=== PATIENT | female | born 1950 | race African-American/Black ===

== ENCOUNTER 2025-04-28 10:40 | Inpatient (IN) | payer OTHER ==
[~2025-04-28] VITALS: Ht 170.2 cm; Wt 112.0 kg
[2025-04-28] VITALS (50 sets, daily range): BP systolic 76–126; BP diastolic 48–79; PULSE 100–133; RESP 9–29; TEMP 33.8–36.5; O2SAT 88–100
[2025-04-28] MEDS ORDERED: DEXTROSE 50% WATER 50ML SYRINGE IV ONE (10:44)
[2025-04-28] MEDS: DEXTROSE 50% WATER 50ML SYRINGE IV ONE ×2 (10:54)
[2025-04-28] MEDS: HEPARIN 5000 UNITS/ML VIAL IV ONE (11:02)
[2025-04-28] MEDS: ASPIRIN 325MG TABLET PO ONE (11:08)
[2025-04-28] MEDS: PROPOFOL 10MG/ML 100ML 100 ML IV SCH (11:11)
[2025-04-28] MEDS ORDERED: HEPARIN 1000 UNITS/ML 10ML ONE (11:22)
[2025-04-28] MEDS ORDERED: EPINEPHRINE 0.1MG/ML (1:10,000) 10ML SYR ONE (11:22)
[2025-04-28] MEDS ORDERED: IODIXANOL 320 MG/ML 150ML BOTTLE IV ONE (11:22)
[2025-04-28] MEDS ORDERED: ATROPINE SULFATE 1MG/10ML SYR ONE (11:23)
[2025-04-28 11:32] LABS: HEMATOCRIT. 36.0 % (36.0-48.0); HEMOGLOBIN. 10.9 g/dL (12.0-16.0); MEAN PLATELET VOLUME 9.1 fl (7.4-10.4); PLATELET 173 x1000/uL (130-400); RED BLOOD CELL COUNT 3.73 mill/uL (4.2-5.4); RED CELL DISTRIBUTION WIDTH 16.2 % (11.6-14.6)
[2025-04-28] MEDS ORDERED: VANCOMYCIN 1G PREMIX 200 ML IV ONE (11:45)
[2025-04-28] MEDS: SODIUM CHLORIDE 0.9% (SEPSIS BOLUS) IV ONE (11:46)
[2025-04-28] MEDS: PIPERACILLIN/TAZO 3.375G/50ML 50 ML IV ONE (11:46)
[2025-04-28 12:05] LABS: CREATININE 2.9 mg/dL (0.6-1.0)
[2025-04-28 12:06] LABS: UREA NITROGEN BLOOD 83 mg/dL (9-23)
[2025-04-28 12:08] LABS: ASPARTATE AMINOTRANSFERASE 1823 IU/L (<34); BILIRUBIN DIRECT 2.6 mg/dL (<=3.0); BILIRUBIN TOTAL 3.6 mg/dL (0.1-1.0); PROTEIN TOTAL 6.1 g/dL (6.0-8.3)
[2025-04-28 12:14] LABS: TROPONIN I HIGH SENSITIVITY 1198 ng/L (3.0-34)
[2025-04-28] MEDS ORDERED: SODIUM BICARBONATE 8.4% 50MEQ/50ML SYR IV ONE ×2 (12:16→12:52)
[2025-04-28] MEDS ORDERED: IPRATROPIUM/ALBUTEROL 0.5-3(2.5)MG/3ML NEB HHN PRN (12:45)
[2025-04-28] MEDS ORDERED: ACETAMINOPHEN 325MG TABLET PO PRN ×2 (12:45)
[2025-04-28] MEDS ORDERED: ONDANSETRON HCL 4MG/2ML INJ IV PRN (12:45)
[2025-04-28] MEDS ORDERED: DOXYCYCLINE HYCLATE 100 MG/VIAL IV SCH (12:45)
[2025-04-28 12:55] LABS: BAND% 16.0 % (1.0-6.0); LYMPHOCYTES % MANUAL 13.0 % (20.0-60.0); MONOCYTES % MANUAL 2.0 % (2.0-8.0); NEUTROPHILS % MANUAL 69.0 % (45.0-75.0); PLATELET ESTIMATE NORMAL
[2025-04-28 13:04] LABS: BG BASE EXCESS -19.6 mmol/L (-2.0-3.0); BG CARBOXYHEMOGLOBIN 0.3 % (0.5-1.5); BG DEOXYHEMOGLOBIN 0.3 % (0.0-5.0); BG FRACTION INSPIRED OXYGEN 100; BG HCO3 ACT 10.5 mmol/L (21.0-28.0); BG METHEMOGLOBIN 0.3 % (0.5-1.5); BG OXYGEN SATURATION 99.7 % (94.0-98.0); BG OXYHEMOGLOBIN 99.1 % (94.0-98.0); BG PCO2 41.0 mmHg (32.0-45.0); BG PEEP (cmH2O) 5.0 cmH2O; BG PH 7.026 (7.350-7.450); BG PO2 345.1 mmHg (83.0-108.0); BG SAMPLE SITE ALINE; BG TIDAL VOLUME(mL) 450.0 mL; BG TOTAL HEMOGLOBIN 11.8 g/dL (12.0-16.0); BG VENT MODE VENT - AC; BG VENT RATE 14.0 set
[2025-04-28] MEDS: SODIUM CHLORIDE 0.45% 1,000 ML IV SCH (13:15)
[2025-04-28] MEDS ORDERED: LACTATED RINGERS 1,000 ML IV ONE (13:30)
[2025-04-28] MEDS ORDERED: MEROPENEM 1,000 MG in SODIUM CHLORIDE 0.9% 100 ML IV SCH (13:45)
[2025-04-28] MEDS ORDERED: PIPERACILLIN/TAZO 3.375G/50ML 50 ML IV SCH (14:00)
[2025-04-28] MEDS ORDERED: ETOMIDATE 2MG/ML 10ML VIAL IV ONE (14:23)
[2025-04-28] MEDS ORDERED: ROCURONIUM BROMIDE 10MG/ML VIAL 5ML IV ONE (14:23)
[2025-04-28 14:29] LABS: CLARITY URINE TURBID (CLEAR); COLOR URINE DARK YELLOW (YELLOW); GLUCOSE URINE NEGATIVE (NEGATIVE); KETONES URINE NEGATIVE (NEGATIVE); LEUKOCYTE ESTERASE URINE 3+ (NEGATIVE); NITRITE URINE POSITIVE (NEGATIVE); OCCULT BLOOD URINE 3+ (NEGATIVE); PH URINE 5.0 (4.5-8.0); PROTEIN URINE 2+ (NEGATIVE); SPECIFIC GRAVITY URINE 1.022 (1.005-1.030); UROBILINOGEN URINE 1.0 E.U./dL (0.2-1.0)
[2025-04-28] MEDS: VANCOMYCIN 1.75GM PMX (XELLIA) 350 ML IV NR (14:35)
[2025-04-28] MEDS: CALCIUM GLUCONATE 100MG/ML 10ML VIAL IV NR (14:35)
[2025-04-28] MEDS: DEXTROSE 50% WATER 50ML SYRINGE IV NR ×2 (14:35→20:39)
[2025-04-28] MEDS: SODIUM BICARBONATE 8.4% 50MEQ/50ML SYR IV NR (14:35)
[2025-04-28] MEDS: PANTOPRAZOLE SODIUM 40 MG/VIAL IV SCH (14:37)
[2025-04-28 14:41] LABS: SODIUM URINE RANDOM 14 mEq/L
[2025-04-28 14:52] LABS: BACTERIA URINE 4+; SQUAMOUS EPITHELIAL CELL URINE 3+ /lpf (RARE/1+)
[2025-04-28 14:55] LABS: RBC URINE 50-100 /hpf (0-2); WBC URINE TNTC /hpf (0-2)
[2025-04-28] MEDS: INSULIN REGULAR (HUMULIN R) 1000UNITS/10ML VIAL IV NR (14:57)
[2025-04-28] MEDS: SODIUM BICARBONATE 100 MEQ in SODIUM CHLORIDE 0.45% 900 ML IV SCH (15:09)
[2025-04-28] MEDS: SODIUM ZIRCONIUM CYCLOSILICATE 10GM/PACKET PO NR (15:09)
[2025-04-28] MEDS: MEROPENEM 500MG/50ML IV SCH (15:09)
[2025-04-28 15:11] LABS: BG BASE EXCESS -15.5 mmol/L (-2.0-3.0); BG CARBOXYHEMOGLOBIN 0.5 % (0.5-1.5); BG DEOXYHEMOGLOBIN 0.2 % (0.0-5.0); BG FRACTION INSPIRED OXYGEN 80; BG HCO3 ACT 12.3 mmol/L (21.0-28.0); BG METHEMOGLOBIN 0.3 % (0.5-1.5); BG OXYGEN SATURATION 99.8 % (94.0-98.0); BG OXYHEMOGLOBIN 99.0 % (94.0-98.0); BG PCO2 36.2 mmHg (32.0-45.0); BG PEEP (cmH2O) 5.0 cmH2O; BG PH 7.150 (7.350-7.450); BG PO2 351.3 mmHg (83.0-108.0); BG SAMPLE SITE ALINE; BG TIDAL VOLUME(mL) 500.0 mL; BG TOTAL HEMOGLOBIN 11.4 g/dL (12.0-16.0); BG VENT MODE VENT - AC; BG VENT RATE 22.0 set
[2025-04-28 15:11] LABS: OSMOLALITY URINE 353 mOsm/kg (500-850)
[2025-04-28 15:40] LABS: *AMPHETAMINES SCREEN URINE NEGATIVE (NEGATIVE); *BARBITURATES SCREEN URINE NEGATIVE (NEGATIVE); *BENZODIAZEPINES SCREEN URINE NEGATIVE (NEGATIVE)
[2025-04-28 15:41] LABS: *COCAINE SCREEN URINE NEGATIVE (NEGATIVE); CANNABINOID URINE SCREEN NEGATIVE (NEGATIVE); ECSTASY MDMA SCREEN URINE NEGATIVE (NEGATIVE); METHADONE URINE SCREEN NEGATIVE (NEGATIVE); OPIATES URINE SCREEN PRESUMPTIVE POSITIVE (NEGATIVE); PHENCYCLIDINE URINE SCREEN NEGATIVE (NEGATIVE)
[2025-04-28] MEDS: BLOOD SUGAR DIAGNOSTIC STRIP TEST SCH (16:00)
[2025-04-28] MEDS: PHENYLEPHRINE 50MG/250ML PMX 250 ML IV PRN (16:53)
[2025-04-28] MEDS: NOREPINEPHRINE 8MG/250ML PMX 250 ML IV PRN (16:54)
[2025-04-28 17:05] LABS: CREATININE 2.6 mg/dL (0.6-1.0); UREA NITROGEN BLOOD 95.0 mg/dL (9-23)
[2025-04-28] MEDS: DOXYCYCLINE 100MG/100ML 100 ML IV SCH (17:28)
[2025-04-28] MEDS: CALCIUM GLUCONATE 100MG/ML 10ML VIAL IV SCH (18:28)
[2025-04-28] MEDS: HYDROCORTISONE SOD SUCCINATE 100 MG/2 ML VIAL IV SCH (18:28)
[2025-04-28] MEDS: SODIUM CHLORIDE 0.9% 1,000 ML IV ONE ×2 (18:28→20:53)
[2025-04-28] MEDS: SODIUM ZIRCONIUM CYCLOSILICATE 10GM/PACKET PO SCH (18:29)
[2025-04-28] MEDS: ENOXAPARIN 100MG/ML SYR SUBCUT SCH (18:29)
[2025-04-28] MEDS: DEXTROSE 50% WATER 50ML SYRINGE IV PRN (18:49)
[2025-04-28] MEDS: PHENYLEPHRINE 100 MG in DEXT 5% WATER 240 ML IV PRN (19:52)
[2025-04-28 20:18] LABS: BG BASE EXCESS -16.3 mmol/L (-2.0-3.0); BG CARBOXYHEMOGLOBIN 1.3 % (0.5-1.5); BG DEOXYHEMOGLOBIN 1.0 % (0.0-5.0); BG FRACTION INSPIRED OXYGEN 40; BG HCO3 ACT 10.7 mmol/L (21.0-28.0); BG METHEMOGLOBIN 0.3 % (0.5-1.5); BG OXYGEN SATURATION 99.0 % (94.0-98.0); BG OXYHEMOGLOBIN 97.4 % (94.0-98.0); BG PCO2 29.4 mmHg (32.0-45.0); BG PEEP (cmH2O) 5.0 cmH2O; BG PH 7.179 (7.350-7.450); BG PO2 155.3 mmHg (83.0-108.0); BG SAMPLE SITE ALINE; BG TIDAL VOLUME(mL) 500.0 mL; BG TOTAL HEMOGLOBIN 12.1 g/dL (12.0-16.0); BG TOTAL RESPIRATORY RATE 28 b/min; BG VENT MODE VENT - AC; BG VENT RATE 28.0 set
[2025-04-28] MEDS: MIDODRINE HCL 5MG TABLET GT SCH (21:07)
[2025-04-29] VITALS (82 sets, daily range): BP systolic 45–148; BP diastolic 17–107; PULSE 48–156; RESP 14–36; TEMP 35.9–36.6; O2SAT 95
[2025-04-29] MEDS: HYDROCORTISONE SOD SUCCINATE 100 MG/2 ML VIAL IV SCH (00:07)
[2025-04-29] MEDS: DEXT 10% WATER 1,000 ML IV SCH ×2 (02:38→06:39)
[2025-04-29 03:03] LABS: INR 2.0
[2025-04-29 04:38] LABS: BG BASE EXCESS -18.2 mmol/L (-2.0-3.0); BG CARBOXYHEMOGLOBIN 0.8 % (0.5-1.5); BG DEOXYHEMOGLOBIN 1.5 % (0.0-5.0); BG FRACTION INSPIRED OXYGEN 40; BG HCO3 ACT 8.9 mmol/L (21.0-28.0); BG METHEMOGLOBIN 0.3 % (0.5-1.5); BG OXYGEN SATURATION 98.5 % (94.0-98.0); BG OXYHEMOGLOBIN 97.4 % (94.0-98.0); BG PCO2 25.3 mmHg (32.0-45.0); BG PEEP (cmH2O) 5.0 cmH2O; BG PH 7.162 (7.350-7.450); BG PO2 125.9 mmHg (83.0-108.0); BG SAMPLE SITE ALINE; BG TIDAL VOLUME(mL) 500.0 mL; BG TOTAL HEMOGLOBIN 11.6 g/dL (12.0-16.0); BG VENT MODE VENT - AC; BG VENT RATE 28.0 set
[2025-04-29] MEDS: SODIUM CHLORIDE 0.9% 1,000 ML IV ONE ×2 (05:21→10:15)
[2025-04-29 05:46] LABS: FOLIC ACID (FOLATE) SERUM 17.06 ng/mL (>5.38)
[2025-04-29 06:05] LABS: VITAMIN B12 SERUM > 2000 pg/mL (211-911)
[2025-04-29 06:14] LABS: HEPATITIS A AB IGM NEGATIVE (Negative)
[2025-04-29 06:15] LABS: HEPATITIS B CORE AB IGM NEGATIVE (Negative); HEPATITIS C AB NON REACTIVE (Neg) (Negative)
[2025-04-29] MEDS: NOREPINEPHRINE 32 MG in DEXT 5% WATER 218 ML IV PRN (06:16)
[2025-04-29 07:15] LABS: CREATININE 2.8 mg/dL (0.6-1.0); UREA NITROGEN BLOOD 85 mg/dL (9-23)
[2025-04-29 07:53] LABS: CREATININE 2.8 mg/dL (0.6-1.0); UREA NITROGEN BLOOD 90 mg/dL (9-23)
[2025-04-29 07:55] LABS: ASPARTATE AMINOTRANSFERASE > 1000 IU/L (<34); BILIRUBIN DIRECT 4.0 mg/dL (<=3.0); BILIRUBIN TOTAL 4.9 mg/dL (0.1-1.0)
[2025-04-29 08:07] LABS: TROPONIN I HIGH SENSITIVITY 3915 ng/L (3.0-34)
[2025-04-29 08:08] LABS: PROTEIN TOTAL 4.0 g/dL (6.0-8.3)
[2025-04-29] MEDS: DEXTROSE 50% WATER 50ML SYRINGE IV NR (08:52)
[2025-04-29] MEDS: SODIUM BICARBONATE 8.4% 50MEQ/50ML SYR IV NR ×2 (08:52→10:53)
[2025-04-29] MEDS: CALCIUM CHLORIDE 1GM/10ML SYR IV NR ×2 (08:53→16:35)
[2025-04-29] MEDS: DIGOXIN 500MCG/2ML AMP IV NR (08:53)
[2025-04-29] MEDS: INSULIN REGULAR (HUMULIN R) 1000UNITS/10ML VIAL IV NR (08:54)
[2025-04-29] MEDS: ALBUMIN HUMAN 25GM/500ML (5%) IV NR (09:18)
[2025-04-29 10:03] LABS: BG BASE EXCESS -21.3 mmol/L (-2.0-3.0); BG CARBOXYHEMOGLOBIN 1.0 % (0.5-1.5); BG DEOXYHEMOGLOBIN 1.1 % (0.0-5.0); BG FRACTION INSPIRED OXYGEN 40; BG HCO3 ACT 8.2 mmol/L (21.0-28.0); BG METHEMOGLOBIN 0.3 % (0.5-1.5); BG OXYGEN SATURATION 98.9 % (94.0-98.0); BG OXYHEMOGLOBIN 97.6 % (94.0-98.0); BG PCO2 31.8 mmHg (32.0-45.0); BG PEEP (cmH2O) 5.0 cmH2O; BG PH 7.027 (7.350-7.450); BG PO2 143.2 mmHg (83.0-108.0); BG SAMPLE SITE ALINE; BG TIDAL VOLUME(mL) 500.0 mL; BG TOTAL HEMOGLOBIN 9.0 g/dL (12.0-16.0); BG VENT MODE VENT - AC; BG VENT RATE 28.0 set
[2025-04-29] MEDS: MEROPENEM 500MG/50ML IV SCH (10:15)
[2025-04-29 11:19] LABS: HEMATOCRIT. 28.8 % (36.0-48.0); HEMOGLOBIN. 8.7 g/dL (12.0-16.0); MEAN PLATELET VOLUME 7.9 fl (7.4-10.4); RED BLOOD CELL COUNT 2.95 mill/uL (4.2-5.4); RED CELL DISTRIBUTION WIDTH 17.1 % (11.6-14.6)
[2025-04-29 12:00] LABS: PLATELET 34 x1000/uL (130-400)
[2025-04-29 12:19] LABS: BAND% 39.0 % (1.0-6.0); LYMPHOCYTES % MANUAL 3.0 % (20.0-60.0); METAMYELOCYTES % 7.0 % (0-0); MONOCYTES % MANUAL 3.0 % (2.0-8.0); MYELOCYTES % 3.0 % (0-0); NEUTROPHILS % MANUAL 45.0 % (45.0-75.0); NUCLEATED RED BLOOD CELLS 1 /100 WBC; PLATELET ESTIMATE MARKEDLY DECREASED
[2025-04-29] MEDS ORDERED: NALOXONE HCL 1MG/ML 2ML VIAL ONE (13:53)
[2025-04-29] MEDS ORDERED: MAGNESIUM SULFATE 4G IN WATER 100ML PREMIX IV ONE (13:53)
[2025-04-29] MEDS ORDERED: SODIUM BICARBONATE 8.4% 50MEQ/50ML SYR IV ONE (13:53)
[2025-04-29] MEDS ORDERED: AMIODARONE HCL 50MG/ML 3ML VIAL IV ONE (13:53)
[2025-04-29] MEDS ORDERED: ATROPINE SULFATE 1MG/10ML SYR ONE (13:53)
[2025-04-29] MEDS ORDERED: EPINEPHRINE 0.1MG/ML (1:10,000) 10ML SYR ONE (13:53)
[2025-04-29] MEDS ORDERED: DEXTROSE 50% WATER 50ML SYRINGE IV ONE (13:53)
[2025-04-29] MEDS ORDERED: LIDOCAINE HCL 2% 5ML SYRINGE IV ONE (13:53)
[2025-04-29] MEDS ORDERED: CALCIUM CHLORIDE 1GM/10ML SYR IV ONE (13:53)
[2025-04-29] MEDS ORDERED: AMIODARONE 360MG/200ML 200 ML IV SCH (14:00)
[2025-04-29] MEDS: AMIODARONE HCL 900 MG in DEXT 5% WATER 482 ML IV SCH (14:34)
[2025-04-29] MEDS: VASOPRESSIN 20 UNIT in SODIUM CHLORIDE 0.9% 99 ML IV PRN (14:34)
[2025-04-29 15:10] LABS: PHOSPHORUS 10.5 mg/dL (2.5-4.9)
[2025-04-29 16:00] LABS: INR 3.0
[2025-04-29 16:03] LABS: CREATININE 2.9 mg/dL (0.6-1.0); UREA NITROGEN BLOOD 86 mg/dL (9-23)
[2025-04-29 16:10] LABS: TROPONIN I HIGH SENSITIVITY 4761 ng/L (3.0-34)
[2025-04-29] MEDS: EPINEPHRINE 10 MG in SODIUM CHLORIDE 0.9% 240 ML IV PRN (16:37)
[2025-04-29 16:39] LABS: BG BASE EXCESS -13.6 mmol/L (-2.0-3.0); BG CARBOXYHEMOGLOBIN 3.0 % (0.5-1.5); BG DEOXYHEMOGLOBIN 0.3 % (0.0-5.0); BG FRACTION INSPIRED OXYGEN 100; BG HCO3 ACT 11.1 mmol/L (21.0-28.0); BG METHEMOGLOBIN 0.2 % (0.5-1.5); BG OXYGEN SATURATION 99.7 % (94.0-98.0); BG OXYHEMOGLOBIN 96.5 % (94.0-98.0); BG PCO2 21.5 mmHg (32.0-45.0); BG PEEP (cmH2O) 5.0 cmH2O; BG PH 7.330 (7.350-7.450); BG PO2 284.2 mmHg (83.0-108.0); BG SAMPLE SITE ALINE; BG TIDAL VOLUME(mL) 500.0 mL; BG TOTAL HEMOGLOBIN 6.4 g/dL (12.0-16.0); BG VENT MODE VENT - AC; BG VENT RATE 28.0 set
[2025-04-29 16:42] LABS: LACTATE DEHYDROGENASE > 4500 IU/L (120-246)
[2025-04-29] MEDS ORDERED: ARGATROBAN 250 MG in SODIUM CHLORIDE 0.9% 247.5 ML IV SCH (17:30)
[2025-04-29] MEDS ORDERED: EPINEPHRINE 20 MG in SODIUM CHLORIDE 0.9% 480 ML IV PRN (18:00)
[2025-04-29] MEDS ORDERED: ENOXAPARIN 100MG/ML SYR SUBCUT SCH ×2 (21:00)
== END 2025-04-29 19:01 | DRG 871 ==
LOC: ER 10:56 → CVICU 12:02 → EDBEDREQTM 12:16 → EDBEDREQSVC 12:16 → EDBEDREQ 12:16
PROVIDERS: ADMIT Hospitalist; ATTEND Hospitalist
PROC: 4A023N7 Measurement of Cardiac Sampling and Pressure, Left Heart, Percutaneous Approach (ICD-10-PCS; principal; 2025-04-28)
PROC: B211YZZ Fluoroscopy of Multiple Coronary Arteries using Other Contrast (ICD-10-PCS; 2025-04-28)
PROC: B215YZZ Fluoroscopy of Left Heart using Other Contrast (ICD-10-PCS; 2025-04-28)
PROC: 02HV33Z Insertion of Infusion Device into Superior Vena Cava, Percutaneous Approach (ICD-10-PCS; 2025-04-28)
PROC: B548ZZA Ultrasonography of Superior Vena Cava, Guidance (ICD-10-PCS; 2025-04-28)
PROC: 5A1945Z Respiratory Ventilation, 24-96 Consecutive Hours (ICD-10-PCS; 2025-04-28)
PROC: 0BH17EZ Insertion of Endotracheal Airway into Trachea, Via Natural or Artificial Opening (ICD-10-PCS; 2025-04-28)
PROC: 5A12012 Performance of Cardiac Output, Single, Manual (ICD-10-PCS; 2025-04-29)
DX: A41.9 Sepsis, unspecified organism (principal); D65 Disseminated intravascular coagulation [defibrination syndrome]; G92.8 Other toxic encephalopathy; J96.01 Acute respiratory failure with hypoxia; K72.00 Acute and subacute hepatic failure without coma; N17.0 Acute kidney failure with tubular necrosis; R65.21 Severe sepsis with septic shock; I21.3 ST elevation (STEMI) myocardial infarction of unspecified site; E87.1 Hypo-osmolality and hyponatremia; E87.20 Acidosis, unspecified; I47.19 Other supraventricular tachycardia; N39.0 Urinary tract infection, site not specified; I82.412 Acute embolism and thrombosis of left femoral vein; M62.82 Rhabdomyolysis; N12 Tubulo-interstitial nephritis, not specified as acute or chronic; I46.9 Cardiac arrest, cause unspecified; D64.9 Anemia, unspecified; E11.22 Type 2 diabetes mellitus with diabetic chronic kidney disease; E83.51 Hypocalcemia; L89.150 Pressure ulcer of sacral region, unstageable; L89.320 Pressure ulcer of left buttock, unstageable; L89.310 Pressure ulcer of right buttock, unstageable; E87.5 Hyperkalemia; I25.10 Atherosclerotic heart disease of native coronary artery without angina pectoris; N18.9 Chronic kidney disease, unspecified; E11.65 Type 2 diabetes mellitus with hyperglycemia; E66.9 Obesity, unspecified; E78.5 Hyperlipidemia, unspecified; E88.09 Other disorders of plasma-protein metabolism, not elsewhere classified; I12.9 Hypertensive chronic kidney disease with stage 1 through stage 4 chronic kidney disease, or unspecified chronic kidney disease; I48.91 Unspecified atrial fibrillation; M16.12 Unilateral primary osteoarthritis, left hip; E83.41 Hypermagnesemia; K80.20 Calculus of gallbladder without cholecystitis without obstruction; Z96.649 Presence of unspecified artificial hip joint; Z68.38 Body mass index [BMI] 38.0-38.9, adult; Z79.4 Long term (current) use of insulin; Z79.82 Long term (current) use of aspirin; Z98.61 Coronary angioplasty status
CPT/HCPCS: 31500; 31720; 36415; 36600; 71045; 72170; 74176; 76770; 80048; 80053; 80076; 80305; 81003; 82330; 82375; 82550; 82607; 82728; 82746; 82805; 82962; 83605; 83615; 83735; 83880; 83930; 83935; 84100; 84134; 84145; 84300; 84484; 85025; 85347; 85379; 85384; 86705; 86709; 87070; 87077; 87186; 87340; 93005; 93458; 93970; 94002; 94003; 94070; 94664; 96374; 96375; 99285; A4606; C1726; C1769; C1887; C1893; J0282; J0461; J0612; J1160; J1644; J1650; J1720; J1815; J2003; J2185; J2312; J2371; J2470; J2543; J2704; J3373; J3475; J3490; J7030; J7050; J7060; P9041; Q9967